=== PATIENT | male | born 1990 | race American Indian/Alaskan Native ===

== ENCOUNTER 2016-12-26 05:48 | Emergency (ER) | payer MEDICARE ==
[2016-12-26 07:22] LABS: Basophils % (Auto) 0.9 % (0.0-1.8); Eosinophils % (Auto) 1.6 % (0.0-4.3); Hematocrit 47.2 % (35.5-45.6); Hemoglobin 16.2 gm/dl (11.8-15.2); Mean Corpuscular HGB Conc 34 % (32-34); Mean Corpuscular Hemoglobin 31 pg (28-32); Mean Corpuscular Volume 90 fl (84-94); Platelet Count 165 K/mm3 (140-440); Red Blood Count 5.25 M/mm3 (3.65-5.03); Red Cell Distribution Width 14.4 % (13.2-15.2); White Blood Count 9.1 K/mm3 (4.5-11.0)
[2016-12-26 07:34] LABS: Anion Gap 14 mmol/L; BUN/Creatinine Ratio 21; Blood Urea Nitrogen 17 mg/dL (9-20); Calcium 9.7 mg/dL (8.4-10.2); Carbon Dioxide 32 mmol/L (22-30); Glucose 96 mg/dL (75-100); Potassium 4.4 mmol/L (3.6-5.0); Sodium 142 mmol/L (137-145)
--- NOTE | 2016-12-26 10:04 | Emergency Department Report ---
ED Psych HPI - General Chief Complaint: Psych Stated Complaint: MH EVAL Time Seen by Provider: 12/26/16 09:52 Source: patient, police Mode of arrival: Ambulatory - History of Present Illness Initial Comments: 26-year-old male who was violent with family at home. Patient was transported by police as he was threatening his family and mother. He was speaking in sentences fragments and mentioning celebrities. Apparently he also threw trash [employer]. Currently with me he denies any complaints. MD Complaint: altered mental status -: Sudden Associated Psychiatric Symptoms: none Associated Symptoms: denies other symptoms Treatments Prior to Arrival: placed on mental he - Related Data Previous Rx's Medication Instructions Recorded Last Taken Type Cephalexin [Keflex] 500 mg PO Q8HR #15 cap 04/22/16 Unknown Rx Allergies Allergy/AdvReac Type Severity Reaction Status Date / Time No Known Allergies Allergy Unverified 04/22/16 12:11 ED Review of Systems ROS: Stated complaint: MH EVAL Other details as noted in HPI Comment: All other systems reviewed and negative Constitutional: denies: chills, fever Eyes: denies: eye pain, eye discharge, vision change ENT: denies: ear pain, throat pain Respiratory: denies: cough, shortness of breath, wheezing Cardiovascular: denies: chest pain, palpitations Endocrine: no symptoms reported Gastrointestinal: denies: abdominal pain, nausea, diarrhea Genitourinary: denies: urgency, dysuria Musculoskeletal: denies: back pain, joint swelling, arthralgia Skin: denies: rash, lesions Neurological: denies: headache, weakness, paresthesias Psychiatric: anxiety, homicidal thoughts. denies: depression Hematological/Lymphatic: denies: easy bleeding, easy bruising ED Past Medical Hx - Past Medical History Previous Medical History?: Yes Additional medical history: "MENTAL HEALTH; NO OFFICIAL DX" - Surgical History Past Surgical History?: Yes Additional Surgical History: LEFT JAW SURGERY - Social History Smoking Status: Unknown if ever smoked Substance Use Type: Prescribed - Medications Home Medications: Home Medications Medication Instructions Recorded Confirmed Last Taken Type Cephalexin [Keflex] 500 mg PO Q8HR #15 cap 04/22/16 Unknown Rx ED Physical Exam - General Limitations: No Limitations General appearance: alert, in no apparent distress - Head Head exam: Present: atraumatic, normocephalic - Eye Eye exam: Present: normal appearance. Absent: scleral icterus, nystagmus - ENT ENT exam: Present: mucous membranes moist - Neck Neck exam: Present: normal inspection - Respiratory Respiratory exam: Present: normal lung sounds bilaterally. Absent: respiratory distress, wheezes - Cardiovascular Cardiovascular Exam: Present: regular rate, normal rhythm, normal heart sounds. Absent: systolic murmur, diastolic murmur, rubs, gallop - GI/Abdominal GI/Abdominal exam: Present: soft, normal bowel sounds. Absent: distended, tenderness - Rectal Rectal exam: Present: deferred - Extremities Exam Extremities exam: Present: normal inspection - Back Exam Back exam: Present: normal inspection - Neurological Exam Neurological exam: Present: alert, oriented X3 - Psychiatric Psychiatric exam: Present: normal affect, normal mood - Skin Skin exam: Present: warm, dry, intact, normal color. Absent: rash ED Course Vital Signs 12/26/16 06:05 Temperature 98.3 F Pulse Rate 98 H Respiratory 17 Rate Blood Pressure 123/71 [Right] O2 Sat by Pulse 100 Oximetry ED Medical Decision Making - Lab Data Result diagrams: 12/26/16 07:07 12/26/16 07:07 Laboratory Results - last 24 hr 12/26/16 12/26/16 12/26/16 07:07 07:07 07:07 WBC 9.1 RBC 5.25 H Hgb 16.2 H Hct 47.2 H MCV 90 MCH 31 MCHC 34 RDW 14.4 Plt Count 165 Lymph % (Auto) 18.5 [place] % (Auto) 7.1 Eos % (Auto) 1.6 Baso % (Auto) 0.9 Lymph # 1.7 [place] # 0.6 Eos # 0.1 Baso # 0.1 Seg Neutrophils % 71.9 H Seg Neutrophils # 6.6 Sodium 142 Potassium 4.4 Chloride 100.0 Carbon Dioxide 32 H Anion Gap 14 BUN 17 Creatinine 0.8 Estimated GFR > 60 BUN/Creatinine Ratio 21 Glucose 96 Calcium 9.7 Plasma/Serum Alcohol < 0.01 - Medical Decision Making 26-year-old male with history of threatening family. He was placed on a mental health hold by police. Currently has no complaints with me. Appears calm but does not really want to answer any specific questions at this point. No medical complaints at this time. Plan to medically clear for psychiatric psychiatric evaluation and will place on a mental health hold until he is medically cleared by psychiatry. Portions of this chart were dictated with dictation software. There may be dictation errors contained within this note. Critical care attestation.: If time is entered above; I have spent that time in minutes in the direct care of this critically ill patient, excluding procedure time. ED Disposition Condition: Stable Referrals: PRIMARY CARE, [Primary Care Provider] - 3-5 Days
[2016-12-26 10:29] LABS: Urine Drugs of Abuse Note Disclamer
[2016-12-26 11:02] LABS: Bacteria,Urine 1+ /HPF (Negative); Bilirubin,Urine NEG (Negative); Blood,Urine NEG (Negative); Ketones,Urine NEG (Negative); Leukocyte Esterase,Urine NEG (Negative); Nitrite,Urine NEG (Negative); Protein,Urine <15 mg/dL mg/dL (Negative); Sperm,Urine FEW /HPF (NP); Urobilinogen,Urine < 2.0 mg/dL (<2.0); WBC,Urine < 1.0 /HPF (0.0-6.0)
[2016-12-26] MEDS ORDERED: ATIVAN ONE (12:46)
[2016-12-26] MEDS ORDERED: ATIVAN IM ONE (12:47)
--- NOTE | 2016-12-26 13:13 | Progress Note ---
Subjective - Reason for Consult Reason for consult: disorgaznied Mental Status Exam - Vital signs Last Vital Signs Temp 98.3 F 12/26/16 06:05 Pulse 98 H 12/26/16 06:05 Resp 17 12/26/16 06:05 BP 123/71 12/26/16 06:05 Pulse Ox 100 12/26/16 06:05 Assessment and Plan I try to evaluate this patient and patient was not cooperative. On observation he was engaging in some bizarre behaviors at the bedside. Patient refused to be interviewed. General Appearance: In hospital gown Sensorium/Consciousness: alert and responding to external stimuli; clear Orientation: Unable to obtain Eye Contact: Fair Attitude / Behavior: guarded, uncooperative Psychomotor & Musculoskeletal Activity: No abnormalities noted Mood: Unable to obtain Affect: constricted, limited range Speech / Language: fluent, with normal rate/rhythm/tone Thought Processes: Somewhat disorganized Thought Content: Unable to obtain Perception: Unable to obtain Insight: limited Judgement: limitied Capacity for ADLs: independent Plan: Patient has been referred to [facility] for inpatient level of care and will be transferred there shortly.
[2016-12-26 15:21] VITALS: BP 107/57
== END 2016-12-26 15:20 ==
LOC: ED 05:48
DX: R41.82 Altered mental status, unspecified (principal)
CPT/HCPCS: 36415; 80048; 80307; 81001; 85025; 96372; 99285; G0480; J2060; 80320

== ENCOUNTER 2017-04-23 09:25 | Emergency (ER) | payer MEDICARE ==
[2017-04-23 09:44] VITALS: BP 121/72
[2017-04-23 10:58] LABS: Bacteria,Urine 1+ /HPF (Negative); Bilirubin,Urine NEG (Negative); Blood,Urine NEG (Negative); Color,Urine Red (Yellow); Nitrite,Urine NEG (Negative); Protein,Urine <15 mg/dL mg/dL (Negative); RBC,Urine < 1.0 /HPF (0.0-6.0); Urobilinogen,Urine < 2.0 mg/dL (<2.0)
[2017-04-23 11:12] LABS: Amphetamine Screen,Urine PRESUMPTIVE NEGATIVE; Benzodiazepines Screen,Urine PRESUMPTIVE NEGATIVE; Cannabinoid Screen,Urine PRESUMPTIVE NEGATIVE; Cocaine Screen,Urine PRESUMPTIVE NEGATIVE; Methadone Screen,Urine PRESUMPTIVE NEGATIVE; Opiate Screen,Urine PRESUMPTIVE NEGATIVE
[2017-04-23 11:21] LABS: Basophils % (Auto) 0.7 % (0.0-1.8); Eosinophils # (Auto) 0.2 K/mm3 (0.0-0.4); Eosinophils % (Auto) 2.7 % (0.0-4.3); Hemoglobin 16.1 gm/dl (11.8-15.2); Lymphocytes % (Auto) 31.3 % (13.4-35.0); Mean Corpuscular HGB Conc 34 % (32-34); Mean Corpuscular Hemoglobin 31 pg (28-32); Mean Corpuscular Volume 92 fl (84-94); Monocytes # (Auto) 0.4 K/mm3 (0.0-0.8); Monocytes % (Auto) 6.4 % (0.0-7.3); Red Blood Count 5.14 M/mm3 (3.65-5.03); Red Cell Distribution Width 14.7 % (13.2-15.2)
[2017-04-23 11:22] LABS: Platelet Count 193 K/mm3 (140-440)
[2017-04-23 11:30] LABS: WBC,Urine < 1.0 /HPF (0.0-6.0)
[2017-04-23 11:41] LABS: BUN/Creatinine Ratio 12; Blood Urea Nitrogen 11 mg/dL (9-20); Calcium 9.2 mg/dL (8.4-10.2); Hemolysis Index 20
== END 2017-04-23 20:25 | disposition left against medical advice (07) ==
LOC: ED 09:25
DX: F29 Unspecified psychosis not due to a substance or known physiological condition (principal); Z53.21 Procedure and treatment not carried out due to patient leaving prior to being seen by health care provider
CPT/HCPCS: 36415; 80048; 80307; 81001; 85025; G0480; 80320

== ENCOUNTER 2017-05-07 04:30 | Emergency (ER) | payer MEDICARE ==
[2017-05-07] MEDS ORDERED: BOOSTRIX IM ONE (08:55)
[2017-05-07 09:02] LABS: Hemoglobin 15.6 gm/dl (11.8-15.2); Mean Corpuscular HGB Conc 33 % (32-34); Mean Corpuscular Hemoglobin 31 pg (28-32); Mean Corpuscular Volume 92 fl (84-94); Platelet Count 201 K/mm3 (140-440); Red Blood Count 5.12 M/mm3 (3.65-5.03); Red Cell Distribution Width 13.9 % (13.2-15.2)
[2017-05-07 09:03] LABS: Mucus,Urine FEW /HPF
[2017-05-07 09:04] LABS: Bilirubin,Urine Negative (Negative); Blood,Urine Moderate (Negative); Color,Urine Yellow (Yellow)
[2017-05-07 09:05] LABS: Basophils # (Auto) 0.1 K/mm3 (0.0-0.1); Eosinophils # (Auto) 0.1 K/mm3 (0.0-0.4); Eosinophils % (Auto) 1.5 % (0.0-4.3); Monocytes # (Auto) 0.5 K/mm3 (0.0-0.8); Urobilinogen,Urine < 2.0 mg/dL (<2.0)
[2017-05-07 09:08] LABS: Basophils % (Auto) 0.9 % (0.0-1.8); Lymphocytes # (Auto) 1.7 K/mm3 (1.2-5.4); Lymphocytes % (Auto) 25.2 % (13.4-35.0)
[2017-05-07 10:36] LABS: BUN/Creatinine Ratio 20; Blood Urea Nitrogen 16 mg/dL (9-20); Calcium 8.9 mg/dL (8.4-10.2); Hemolysis Index 5
[2017-05-07 12:17] LABS: BUN/Creatinine Ratio 21; Blood Urea Nitrogen 19 mg/dL (9-20); Calcium 9.1 mg/dL (8.4-10.2)
[2017-05-07 12:19] LABS: Amphetamine Screen,Urine PRESUMPTIVE NEGATIVE; Benzodiazepines Screen,Urine PRESUMPTIVE NEGATIVE; Cannabinoid Screen,Urine PRESUMPTIVE POSITIVE; Cocaine Screen,Urine PRESUMPTIVE NEGATIVE; Methadone Screen,Urine PRESUMPTIVE NEGATIVE; Opiate Screen,Urine PRESUMPTIVE NEGATIVE
[2017-05-09 09:38] VITALS: BP 116/59
--- NOTE | 2017-05-09 12:16 | Consultation ---
History of Present Illness - Reason for Consult Consult date: 05/09/17 Reason for consult: Mental Health Evaluation Requesting physician: FITO MCKEON - Chief Complaint Chief complaint: "I didn't do anything" - History of Present Psychiatric Illness 27 y.o. AA male presenting to [facility] for suicidal attempt per the record. Today the patient is calm, but disorganized during the assessment. He stated that he got into an argument with his mother. He was tangent during the interview, so he was redirected several times to keep him on topic. This patient is a poor historian at this time. Medications and Allergies Allergies Allergy/AdvReac Type Severity Reaction Status Date / Time No Known Allergies Allergy Unverified 04/22/16 12:11 Home Medications Medication Instructions Recorded Confirmed Last Taken Type Cephalexin [Keflex] 500 mg PO Q8HR #15 cap 04/22/16 05/08/17 Unknown Rx Past psychiatric history - Past Medical History Past Medical History: other (Unable to obtain ) Past Surgical History: Other (Unable to obtain) - past Psychiatric treatment and history psychiatric treatment history: Unable to obtain a psy hx and fam psy hx. - Social History Social history: other (Unable to obtain) Mental Status Exam - Vital signs Last Vital Signs Temp 98.3 F 05/09/17 09:32 Pulse 64 05/09/17 09:32 Resp 16 05/09/17 09:32 BP 116/59 05/09/17 09:32 Pulse Ox 99 05/09/17 09:32 - Exam Narrative exam: MSE: Appearance: calm Behavior: poor eye contact Speech: regular rate and tone Mood: unable to obtain Affect: limited range Thought Process: unable to assess Thought Content: disorganized Motor Activity: ambulatory Cognition: A/O x3 Insight: poor Judgment: poor Results Result Diagrams: 05/07/17 05:16 05/07/17 09:45 All other labs normal. 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 Today the patient is calm, but disorganized during the assessment. DDx: R/O Bipolar DO, R/O Substance Induced Mood/Psy DO Recommendation/Plan: Continue 1013 with placement to [facility] today.
== END 2017-05-09 16:30 ==
LOC: ED 04:30
DX: F39 Unspecified mood [affective] disorder (principal); F12.10 Cannabis abuse, uncomplicated; Z79.899 Other long term (current) drug therapy
CPT/HCPCS: 36415; 80048; 80307; 81001; 85025; 99285; G0480; 80320